=== PATIENT | female | born 1970 | race Caucasian/White ===

== ENCOUNTER 2018-03-01 06:27 | Inpatient (IN) | payer BC, OTHER, SELFPAY ==
[~2018-03-01] VITALS: Ht 175.3 cm; Wt 46.6 kg
[2018-03-01] MEDS ORDERED: MORPHINE SULFATE 4 MG/ML, 1ML ONE (06:57)
[2018-03-01] MEDS ORDERED: MORPHINE SULFATE 4 MG/ML, 1ML IVPush PRN ×2 (07:00→08:30)
[2018-03-01] MEDS ORDERED: PLEASE ENTER ALLERGIES MC SCH (07:00)
[2018-03-01] MEDS ORDERED: ETOMIDATE 20 MG/10 ML ONE (07:25)
[2018-03-01] MEDS ORDERED: ETOMIDATE 20 MG/10 ML IVPush ONE (07:30)
[2018-03-01] MEDS ORDERED: SODIUM CHLORIDE FLUSH 10ML SYR IVF PRN (08:30)
[2018-03-01] MEDS ORDERED: POTASSIUM CHLORIDE 20 MEQ in D5%-0.45% NACL 1,000 ML IV ONE (09:00)
[2018-03-01] MEDS ORDERED: HYDROmorphone 2 MG/ML, 1ML IV PRN (09:00)
[2018-03-01 13:05] VITALS: BP 129/77
[2018-03-01] MEDS ORDERED: EPINEPHRINE 1 MG/ML, 1ML ONE (16:39)
[2018-03-01] MEDS ORDERED: BUPIVACAINE/PF 0.5% ONE (16:39)
[2018-03-01] MEDS ORDERED: MIDAZOLAM 1 MG/ML, 2ML ONE (16:57)
[2018-03-01] MEDS ORDERED: FENTANYL PF 100 MCG/2ML ONE ×2 (16:58→19:57)
[2018-03-01] MEDS ORDERED: ONDANSETRON 2MG/ML, 2ML ONE (17:41)
[2018-03-01] MEDS ORDERED: DEXAMETHASONE 4 MG/ML, 1ML ONE (17:41)
[2018-03-01] MEDS ORDERED: CEFAZOLIN 1,000 MG ONE (17:41)
[2018-03-01] MEDS ORDERED: PROPOFOL 10 MG/ML, 20ML ONE (17:41)
[2018-03-01] MEDS ORDERED: OXYcodone 5 MG/5 ML ORAL.SOL UDC ONE (19:57)
[2018-03-01] MEDS ORDERED: hydrALAzine 20 MG/ML, 1ML IV PRN (20:00)
[2018-03-01] MEDS ORDERED: ACETAMINOPHEN 325 MG TABLET PO PRN ×2 (20:00→22:00)
[2018-03-01] MEDS ORDERED: ALBUTEROL/IPRATROPIUM 2.5MG/0.5MG, 3 ML NPPB PRN (20:00)
[2018-03-01] MEDS ORDERED: OXYcodone 5 MG/5 ML ORAL.SOL UDC PO PRN ×2 (20:00→22:00)
[2018-03-01] MEDS ORDERED: KETOROLAC 30 MG/1 ML IV PRN (20:00)
[2018-03-01] MEDS ORDERED: ONDANSETRON 2MG/ML, 2ML IVPush PRN (20:00)
[2018-03-01] MEDS ORDERED: MEPERIDINE/PF 25MG/0.5ML IVPush PRN (20:00)
[2018-03-01] MEDS ORDERED: MIDAZOLAM 1 MG/ML, 2ML IV PRN (20:00)
[2018-03-01] MEDS ORDERED: EPHEDRINE 50 MG/ML, 1ML IVPush PRN (20:00)
[2018-03-01] MEDS ORDERED: DIAZEPAM 5 MG/ML, 2ML IVPush PRN (20:00)
[2018-03-01] MEDS ORDERED: HYDROcodone/APAP 7.5-325MG/15ML UDC PO PRN (20:00)
[2018-03-01] MEDS ORDERED: ALBUTEROL SULFATE 2.5 MG/3 ML NPPB PRN (20:00)
[2018-03-01] MEDS ORDERED: PROMETHAZINE 25 MG/ML, 1ML IV PRN (20:00)
[2018-03-01] MEDS ORDERED: morphine SULFATE 10 MG/ML, 1ML IV PRN (20:00)
[2018-03-01] MEDS ORDERED: PROMETHAZINE 12.5 MG SUPP PR PRN (20:00)
[2018-03-01] MEDS ORDERED: ALBUTEROL SULFATE 2.5 MG/3 ML ONE (20:02)
[2018-03-01] MEDS: FENTANYL PF 100 MCG/2ML IV PRN ×2 (20:15→20:45)
[2018-03-01] MEDS ORDERED: ONDANSETRON ODT 4 MG PO PRN ×2 (20:30→22:00)
[2018-03-01] MEDS ORDERED: DIPHENHYDRAMINE 25 MG CAPSULE PO PRN (21:00)
[2018-03-01] MEDS ORDERED: BISACODYL 10 MG SUPP PR PRN (22:00)
[2018-03-01] MEDS ORDERED: ALUMINUM/MAG/SIMETHICONE 30 ML UDC PO PRN (22:00)
[2018-03-01] MEDS ORDERED: MAGNESIUM HYDROXIDE 8%, 30ML UDC PO PRN (22:00)
[2018-03-01] MEDS ORDERED: HYDROmorphone 1 MG/ML, 1ML IV PRN (22:00)
[2018-03-01] MEDS ORDERED: SENNA/DOCUSATE TABLET PO PRN (22:00)
[2018-03-01] MEDS ORDERED: ONDANSETRON 2MG/ML, 2ML IV PRN (22:00)
[2018-03-01] MEDS: D5%-LACTATED RINGERS 1,000 ML IV SCH (22:00)
[2018-03-02 00:16] VITALS: BP 135/70
[2018-03-02] MEDS: HYDROcodone/APAP 10/325 MG TABLET PO PRN ×4 (02:32→13:16)
[2018-03-02] MEDS: CEFAZOLIN PMX 2GM/50ML 50 ML IVPB SCH ×2 (02:33→09:20)
[2018-03-02] MEDS: D5%-LACTATED RINGERS 1,000 ML IV SCH ×2 (05:33→14:00)
[2018-03-02 06:49] VITALS: BP 107/57
[2018-03-02] MEDS ORDERED: SODIUM CHLORIDE FLUSH 10ML SYR IVF SCH (09:00)
[2018-03-02] MEDS ORDERED: MULTIVITAMINS/MINERALS TABLET PO SCH (09:00)
[2018-03-02] MEDS ORDERED: DOCUSATE 100 MG CAPSULE PO SCH (09:00)
[2018-03-02] MEDS ORDERED: ASPIRIN 325 MG TABLET EC PO SCH (09:00)
[2018-03-02] MEDS ORDERED: OXYC1TAB7 PO (15:16)
[2018-03-02] MEDS ORDERED: ASPI-496 PO (15:18)
[2018-03-02 15:40] VITALS: BP 122/77
== END 2018-03-02 16:00 | disposition home or self-care (01) | DRG 494 ==
LOC: ED 07:17 → 4NOR 08:02 → OBSVTOIN 21:52
PROVIDERS: ADMIT Orthopaedic Surgery; ATTEND Orthopaedic Surgery
PROC: 0QSH04Z Reposition Left Tibia with Internal Fixation Device, Open Approach (ICD-10-PCS; 2018-03-01)
PROC: 0QSK04Z Reposition Left Fibula with Internal Fixation Device, Open Approach (ICD-10-PCS; principal; 2018-03-01 17:30)
DX: S82.842A Displaced bimalleolar fracture of left lower leg, initial encounter for closed fracture (principal); S82.432A Displaced oblique fracture of shaft of left fibula, initial encounter for closed fracture; S82.852A Displaced trimalleolar fracture of left lower leg, initial encounter for closed fracture; Y93.01 Activity, walking, marching and hiking; W00.0XXA Fall on same level due to ice and snow, initial encounter; Y92.89 Other specified places as the place of occurrence of the external cause; Z90.49 Acquired absence of other specified parts of digestive tract; Y99.8 Other external cause status; Z88.8 Allergy status to other drugs, medicaments and biological substances
CPT/HCPCS: 27840; 36415; 76001; 82962; 84703; 94640; 96374; G0378; J0171; J0690; J1100; J1170; J2250; J2405; J2704; J3010; J3490; J7613; Q0162; J7121